=== PATIENT | female | born 1990 | race Caucasian/White ===

== ENCOUNTER 2016-04-24 19:48 | Emergency (ER) | payer OTHER ==
[2016-04-24 19:57] VITALS: BP 132/61; TEMP 98.2; BMI 32.0
[2016-04-24 20:07] LABS: URINE APPEARANCE CLEAR; URINE BILIRUBIN NEGATIVE (NEGATIVE); URINE BLOOD NEGATIVE (NEGATIVE); URINE COLOR LTYELLOW; URINE GLUCOSE (UA) NEGATIVE (NEGATIVE); URINE KETONE NEGATIVE (NEGATIVE); URINE NITRITE NEGATIVE (NEGATIVE); URINE PROTEIN NEGATIVE (NEGATIVE); URINE UROBILINOGEN NEGATIVE E.U./dl (0.2-1.0)
[2016-04-24 20:14] LABS: URINE LEUK ESTERASE 3+ (NEGATIVE)
[2016-04-24 20:15] LABS: URINE BACTERIA RARE /hpf (NONE SEEN); URINE MUCUS RARE; URINE RBC 1 /hpf (0-3); URINE WBC 14 /hpf (3-5)
[2016-04-24 21:04] VITALS: PULSE 131
--- NOTE | 2016-04-24 21:19 | PDOC ---
History of Present Illness - General Chief Complaint: Pain Stated Complaint: BACK PAIN Time Seen by Provider: 04/24/16 21:05 - History of Present Illness Initial Comments: 04/24/16 22:07 CHIEF COMPLAINT: back pain HISTORY OF PRESENT ILLNESS: 25 yo F with significant PMH present to fast track with back pain since this afternoon. Patient states that she "woke up from a nap today and my back hurt." Patient denies any loss of sensation to extremities, any bladder or bowel dysfunction, numbness, or tingling to legs, but does report having a history of "crystals in my urine." Patient denies any fever, chills, nausea, vomiting, diarrhea, or rectal bleeding. No recent travel or sick contacts. PAST MEDICAL HISTORY: "crystals in my urine" FAMILY HISTORY: Denies SOCIAL HISTORY: Lives at home with . Denies tobacco, alcohol, illicit drug use. SURGICAL HISTORY: Denies ALLERGIES: latex, rubber REVIEW OF SYSTEMS General/Constitutional: Denies fever or chills. Denies weakness, weight change. HEENT: Denies change in vision. Denies ear pain or discharge. Denies sore throat. Cardiovascular: Denies chest pain or shortness of breath. Respiratory: Denies cough, wheezing, or hemoptysis. Gastrointestinal: Denies nausea, vomiting, diarrhea or constipation. Denies rectal bleeding. Genitourinary: Denies dysuria, frequency, or change in urination. Musculoskeletal: Back pain. Denies joint or muscle swelling or pain. Denies neck or back pain. Skin and breasts: Denies rash or easy bruising. PHYSICAL EXAM General Appearance: Well-appearing, appropriately dressed. No apparent distress , no intoxication. HEENT: EOMI, PERRLA, normal ENT inspection, normal voice, TMs normal, pharynx normal. No conjunctival pallor. No photophobia, scleral icterus. Neck: No midline tenderness to cervical spine. Supple. Trachea midline. No tenderness, rigidity, carotid bruit, stridor, lymphadenopathy, or thyromegaly. Respiratory/Chest: Lungs CTAB. Cardiovascular: RRR. S1, S2. Gastrointestinal/Abdominal: Normal bowel sounds. Abdomen soft, non-distended. No tenderness or rebound tenderness. No organomegaly, pulsatile mass, guarding , hernia, hepatomegaly, splenomegaly. Musculoskeletal/Extremities: No midline tenderness to thoracic or lumbar spine. Mild tenderness over R latissimus dorsi on deep palpation vs mild R CVA tenderness. Normal inspection. FROM of all extremities, normal capillary refill. Pelvis Stable. No tenderness to extremities, pedal edema, swelling, erythema or deformity. Integumentary: Appropriate color, dry, warm. No cyanosis, erythema, jaundice or rash Neurologic: event marketing intern II-XII intact. Fully oriented, alert. Appropriate mood/affect. Motor strength 5/5. No appreciable EOM palsy, facial droop or sensory deficit. Past History - Past Medical History Allergies/Adverse Reactions: Allergies Allergy/AdvReac Type Severity Reaction Status Date / Time Latex, Natural Rubber Allergy Severe Rash Verified 04/24/16 19:53 Home Medications: Ambulatory Orders Cephalexin Monohydrate [Keflex -] 250 mg PO BID #14 capsule 04/24/16 Asthma: Yes Cancer: No Cardiac Disorders: No Diabetes: No HTN: No Suicide Attempt (Hx): No Seizures: No Thyroid Disease: No - Immunization History Td Vaccination: Yes Immunization Up to Date: Yes - Psycho/Social/Smoking Cessation Hx Anxiety: No Suicidal Ideation: No Smoking Status: No Smoking History: Never smoked Years of Tobacco Use: 0 Have you smoked in the past 12 months: No Number of Cigarettes Smoked Daily: 0 Cigars Per Day: 0 Hx Alcohol Use: No Drug/Substance Use Hx: No Substance Use Type: None Hx Substance Use Treatment: No *Physical Exam - Vital Signs Last Vital Signs Temp Pulse Resp BP Pulse Ox 98.2 F 131 H 18 132/61 96 04/24/16 19:54 04/24/16 21:03 04/24/16 19:54 04/24/16 19:54 04/24/16 21:03 ED Treatment Course - ADDITIONAL ORDERS Additional order review: Laboratory Results 04/24/16 20:00 Urine Color Ltyellow Urine Appearance Clear Urine pH 5.0 Ur Specific Kellogg 1.026 Urine Protein Negative Urine Glucose (UA) Negative Urine Ketones Negative Urine Blood Negative Urine Nitrite Negative Urine Bilirubin Negative Urine Urobilinogen Negative Ur Leukocyte Esterase 3+ H Urine RBC 1 Urine WBC 14 Ur Epithelial Cells Rare Urine Bacteria Rare Urine Mucus Rare Urine HCG, Qual Positive Medical Decision Making - Medical Decision Making 04/24/16 22:11 25 yo F with no significant PMH presents to fast track with back pain. -UA, UCx, Upreg UA positive for 14 WBC, will treat with Keflex as patient's urine test came back positive. Informed patient that she is ; patient and appear happy with the news. Discussed with patient that she should follow up with OBGYN. Advised patient to take medication as prescribed for UTI. Advised patient of signs and symptoms for return to ER. Patient verbalized understanding and agrees to plan. *DC/Admit/Observation/Transfer Diagnosis at time of Disposition: Urinary tract infection Qualifiers: Urinary tract infection type: site unspecified Hematuria presence: without hematuria Qualified Code(s): N39.0 - Urinary tract infection, site not specified - Discharge Dispostion Disposition: HOME Condition at time of disposition: Improved Admit: No - Prescriptions Prescriptions: Cephalexin Monohydrate [Keflex -] 250 mg PO BID #14 capsule - Referrals Referrals: Mei Tyler [Primary Care Provider] - Faisal Olvera MD [Staff Physician] - - Patient Instructions Printed Discharge Instructions: Urinary Tract Infection, Common Discomforts and Bodily Changes During Additional Instructions: Please take medication as prescribed and follow up with the netsuite consultant ( referral provided). If you experience chest pain, headache, shortness of breath , "tearing" pain that travels from the front to the back, fever, chills, nausea , vomiting, diarrhea, severe vaginal bleeding, or any new or worsening symptoms , please return to the ED immediately.
== END 2016-04-24 21:29 | disposition home or self-care (01) ==
LOC: JERFT 19:48
DX: N39.0 Urinary tract infection, site not specified (principal); Z33.1 Pregnant state, incidental; J45.909 Unspecified asthma, uncomplicated
CPT/HCPCS: 81003; 81015; 84703; 87086; 99281-25

== ENCOUNTER 2016-09-09 11:32 | Emergency (ER) | payer OTHER ==
[2016-09-09 11:46] VITALS: BP 135/75; PULSE 105; TEMP 98.9; BMI 38.4
--- NOTE | 2016-09-09 12:14 | PDOC ---
History of Present Illness - General Chief Complaint: Ear Problem Stated Complaint: PAIN/ EYES, EARS, THROAT Time Seen by Provider: 09/09/16 12:00 History Source: Patient Exam Limitations: No Limitations - History of Present Illness Initial Comments: 09/09/16 12:13 23 weeks with complaints of left ear pain and congestions. His asthmatic, used an albuterol nebulizer at home with minimal resolved. States has congestion in both of her ears, some mild forehead pain. Also woke up this morning with yellow crusted drainage to left eye this morning. States felt feverish 2 days ago but has not taken temperature. Suffers from seasonal ALLERGIES but has taken no medications due to . [place] and albuterol inhalers per schedule has been normal without complication or incident 09/09/16 12:45 Timing/Duration: 1 week Severity: mild Associated Symptoms: reports: cough, fever/chills, malaise Past History - Travel Traveled outside of the country in the last 30 days: No Close contact w/someone who was outside of country & ill: No - Past Medical History Allergies/Adverse Reactions: Allergies Allergy/AdvReac Type Severity Reaction Status Date / Time Latex, Natural Rubber Allergy Severe Rash Verified 09/09/16 11:46 Home Medications: Ambulatory Orders Albuterol 0.083% Nebulizer Debby [Ventolin 0.083% Nebulizer Soln -] 1 neb NEB Q4H PRN #30 vial 09/09/16 Sodium Chloride Inhalation [Normal Saline For Inhalation -] 3 ml IH Q6H #30 vial.neb 09/09/16 Asthma: Yes Cancer: No Cardiac Disorders: No Diabetes: No HTN: No Suicide Attempt (Hx): No Seizures: No Thyroid Disease: No - Immunization History Td Vaccination: Yes Immunization Up to Date: Yes - Psycho/Social/Smoking Cessation Hx Anxiety: No Suicidal Ideation: No Smoking Status: No Smoking History: Never smoked Years of Tobacco Use: 0 Have you smoked in the past 12 months: No Number of Cigarettes Smoked Daily: 0 Cigars Per Day: 0 Information on smoking cessation initiated: No Hx Alcohol Use: No Drug/Substance Use Hx: No Substance Use Type: None Hx Substance Use Treatment: No Review of Systems - Review of Systems Able to Perform ROS?: Yes Is the patient limited [place]er proficient: Yes Constitutional: Yes: See HPI, Malaise HEENTM: Yes: Symptoms Reported, Tearing (yellow crusting ), Nose Congestion Respiratory: Yes: Symptoms reported, See HPI, Cough, Wheezing Musculoskeletal: Yes: Symptoms Reported Integumentary: Yes: Symptoms Reported Neurological: No: Symptoms reported All Other Systems: Reviewed and Negative *Physical Exam - Vital Signs Last Vital Signs Temp Pulse Resp BP Pulse Ox 98.9 F 105 H 18 135/75 100 09/09/16 11:44 09/09/16 11:44 09/09/16 11:44 09/09/16 11:44 09/09/16 11:44 - Physical Exam General Appearance: Yes: Nourished, Appropriately Dressed, Apparent Distress HEENT: positive: DOC, Normal ENT Inspection, TMs Normal, Pharynx Normal Neck: positive: Tender, Supple. negative: Lymphadenopathy (R), Lymphadenopathy (L) Respiratory/Chest: positive: Lungs Clear, Decreased Breath Sounds, Wheezing. negative: Normal Breath Sounds Gastrointestinal/Abdominal: positive: Soft. negative: Tender Musculoskeletal: positive: Normal Inspection Extremity: positive: Normal Capillary Refill Integumentary: positive: Normal Color, Dry, Warm Neurologic: positive: oim architect II-XII NML intact, Fully Oriented, Alert, Normal Mood/ Affect, Normal Response, Motor Strength 5/5 Medical Decision Making - Medical Decision Making 09/09/16 12:49 Much improved after 1 DuoNeb, we will prescribe more albuterol nebulizers and encouraged to use the saline to help break up mucus. Encouraged Benadryl use for antihistamine during ALLERGY season. And tobramycin for left eye conjunctivitis *DC/Admit/Observation/Transfer Diagnosis at time of Disposition: Asthma Qualifiers: Asthma severity: mild intermittent Asthma complication type: with acute exacerbation Qualified Code(s): J45.21 - Mild intermittent asthma with (acute) exacerbation Conjunctivitis Qualifiers: Conjunctivitis type: acute Acute conjunctivitis type: bacterial Laterality: left Qualified Code(s): H10.32 - Unspecified acute conjunctivitis, left eye - Discharge Dispostion Disposition: HOME Condition at time of disposition: Stable Admit: No - Prescriptions Prescriptions: Sodium Chloride Inhalation [Normal Saline For Inhalation -] 3 ml IH Q6H #30 vial.neb Albuterol 0.083% Nebulizer Debby [Ventolin 0.083% Nebulizer Soln -] 1 neb NEB Q4H PRN #30 vial PRN Reason: Cough - Patient Instructions Printed Discharge Instructions: DI for Allergic Rhinitis Additional Instructions: Rest, drink lots of fluids: Teas, water, soups Saltwater gargles. Consider humidifier in room at night Steamy showers/seem to face break up mucus Avoid contact with allergens, exposure to pollens, close windows on a windy day Lots of handwashing and good hygiene Continue [id number] medications for symptomatic relief- may use allergic eyedrops for itching I Continue antihistamines daily until pollen season is over; Benadryl at nighttime as will make sleepy Tylenol n for fever and pain Continue albuterol nebulizers and dilute with saline to help break up mucus assist with cough Tobramycin drops, 2 drops to left eye 4 times a day for 5 days Ensure washing hands before and after instillation as this is very contagious and avoid contact with others until resolved Followup with private physician in one to 2 days as needed Return to emergency department for worsened symptoms, fevers, dehydration - Post Discharge Activity Work/School Note: Back to Work
[2016-09-09] MEDS ORDERED: ALBUTEROL SO4 2.5/IPRATROPIUM 0.5 INH SOL 3 ML VIAL.NEB. NEB ONE ×2 (12:29→12:36)
[2016-09-09] MEDS ORDERED: TOBRAMYCIN 0.3% OPHTH SOLN 5 ML BOTTLE OD ONE (12:29)
[2016-09-09] MEDS ORDERED: TOBRAMYCIN 0.3% OPHTH SOLN 5 ML BOTTLE ONE (12:36)
== END 2016-09-09 13:56 | disposition home or self-care (01) ==
LOC: JERFT 11:32
PROC: 3E0F7GC Introduction of Other Therapeutic Substance into Respiratory Tract, Via Natural or Artificial Opening (ICD-10-PCS; principal; 2016-09-09)
DX: J45.21 Mild intermittent asthma with (acute) exacerbation (principal); H10.32 Unspecified acute conjunctivitis, left eye; J30.2 Other seasonal allergic rhinitis
CPT/HCPCS: 94640; 99281-25

== ENCOUNTER 2018-02-10 03:19 | Emergency (ER) | payer OTHER ==
--- NOTE | 2018-02-10 03:53 | PDOC ---
History of Present Illness - General Chief Complaint: Headache Stated Complaint: 12 WEEKS /MIGRANE Time Seen by Provider: 02/10/18 03:52 History Source: Patient - History of Present Illness Initial Comments: 02/10/18 06:19 27 year old 12 weeks female with nausea, vomiting and headache x 3 days. patient reports that he has photophobia with the headache. unable tot take tylenol due to the nausea. denies vaginal bleeding, abdominal pain, fever/ chills, neck pain Pmhx: migraines Past History - Past Medical History Allergies/Adverse Reactions: Allergies Allergy/AdvReac Type Severity Reaction Status Date / Time Latex, Natural Rubber Allergy Severe Rash Verified 09/09/16 11:46 Home Medications: Ambulatory Orders Albuterol 0.083% Nebulizer Debby [Ventolin 0.083% Nebulizer Soln -] 1 neb NEB Q4H PRN #30 vial 09/09/16 Sodium Chloride Inhalation [Normal Saline For Inhalation -] 3 ml IH Q6H #30 vial.neb 09/09/16 Doxylamine Succinate/Vit B6 [[place] 10-10 mg Tablet] 1 each PO HS #14 tablet. 02/10/18 Asthma: Yes Cancer: No Cardiac Disorders: No Diabetes: No HTN: No Seizures: No Thyroid Disease: No - Immunization History Td Vaccination: Yes Immunization Up to Date: Yes - Suicide/Smoking/Psychosocial Hx Smoking Status: No Smoking History: Never smoked Years of Tobacco Use: 0 Have you smoked in the past 12 months: No Number of Cigarettes Smoked Daily: 0 Cigars Per Day: 0 Hx Alcohol Use: No Drug/Substance Use Hx: No Substance Use Type: None Hx Substance Use Treatment: No *Physical Exam - Vital Signs 02/10/18 06:20 Last Vital Signs Temp Pulse Resp BP Pulse Ox 98.5 F 106 H 19 124/83 99 02/10/18 03:49 02/10/18 03:49 02/10/18 03:49 02/10/18 03:49 02/10/18 03:49 - Physical Exam General Appearance: Yes: Appropriately Dressed Respiratory/Chest: positive: Lungs Clear, Normal Breath Sounds Cardiovascular: positive: Regular Rhythm, Regular Rate Gastrointestinal/Abdominal: positive: Normal Bowel Sounds Neurologic: positive: travel services professional II-XII NML intact, Fully Oriented, Alert, Normal Mood/ Affect, Motor Strength 5/5, Other (+ sensitivity to light) ED Treatment Course - LABORATORY CBC & Chemistry Diagram: 02/10/18 04:37 02/10/18 04:37 Medical Decision Making - Medical Decision Making 02/10/18 06:32 patient reports feeling better. no photophobia/ feve *DC/Admit/Observation/Transfer Diagnosis at time of Disposition: Hyperemesis gravidarum Migraine Qualifiers: Migraine type: without aura Status migrainosus presence: without status migrainosus Intractability: not intractable Qualified Code(s): G43.009 - Migraine without aura, not intractable, without status migrainosus - Discharge Dispostion Disposition: HOME - Prescriptions Prescriptions: Doxylamine Succinate/Vit B6 [[place] 10-10 mg Tablet] 1 each PO HS #14 tablet. - Referrals Referrals: Mei Tyler [Primary Care Provider] - - Patient Instructions Printed Discharge Instructions: Celena May Improve Nausea Symptoms in Additional Instructions: drink plenty of fluids follow up with your doctor as soon as possible. return to the ER if symptoms worsen - Post Discharge Activity Forms/Work/School Notes: Back to Work
[2018-02-10] MEDS ORDERED: SODIUM CHLORIDE 1,000 ML IV STA (03:58)
[2018-02-10] MEDS ORDERED: METOCLOPRAMIDE HCL INJECTION 10 MG/2 ML VIAL IVPB ONE (03:59)
[2018-02-10 04:06] VITALS: BP 124/83; PULSE 106; TEMP 98.5; BMI 39.1
[2018-02-10] MEDS ORDERED: METOCLOPRAMIDE HCL INJECTION 10 MG/2 ML VIAL ONE (04:11)
[2018-02-10 04:43] LABS: BASO % 0.2 % (0-2.0); EOS % 0.1 % (0-4.5); HEMATOCRIT 36.6 % (32.4-45.2); HEMOGLOBIN 12.6 GM/dL (10.7-15.3); LYMPH % 18.8 % (8-40); MCH 29.9 pg (25.7-33.7); MCHC 34.4 g/dl (32.0-36.0); MEAN PLT VOLUME 9.8 fl (7.5-11.1); MONO % 4.3 % (3.8-10.2); NEUT % 76.6 % (42.8-82.8); PLATELET COUNT 181 K/MM3 (134-434); RBC 4.21 M/mm3 (3.60-5.2); RDW 13.8 % (11.6-15.6); WHITE BLOOD COUNT 7.3 K/mm3 (4.0-10.0)
[2018-02-10 04:53] LABS: URINE APPEARANCE SLCLOUDY; URINE BILIRUBIN NEGATIVE (<2.0 mg/dL); URINE COLOR YELLOW; URINE GLUCOSE (UA) NEGATIVE (NEGATIVE); URINE KETONE NEGATIVE (NEGATIVE); URINE LEUK ESTERASE NEGATIVE (NEGATIVE); URINE NITRITE NEGATIVE (NEGATIVE); URINE PROTEIN 1+ (NEGATIVE); URINE UROBILINOGEN NEGATIVE mg/dL (0.2-1.0)
[2018-02-10 05:10] LABS: EPI CELLS FEW /HPF (FEW); URINE MUCUS MODERATE
[2018-02-10 05:43] LABS: ALBUMIN 3.4 g/dl (3.4-5.0); ALK PHOS 72 U/L (45-117); ANION GAP 10 MMOL/L (8-16); BILIRUBIN,TOTAL 0.5 mg/dL (0.2-1); BLOOD UREA NITROGEN 6 mg/dL (7-18); CALCIUM 8.7 mg/dL (8.5-10.1); CHLORIDE 107 mmol/L (98-107); CO2 24 mmol/L (21-32); CREATININE 0.4 mg/dL (0.55-1.3); GLUCOSE,RANDOM 108 mg/dL (74-106); POTASSIUM 3.8 mmol/L (3.5-5.1); SGOT/AST 7 U/L (15-37); SGPT/ALT 12 U/L (13-61); SODIUM 141 mmol/L (136-145); TOT PROT 6.4 g/dl (6.4-8.2)
== END 2018-02-10 07:00 | disposition home or self-care (01) ==
LOC: JER 03:19
PROC: 3E033GC Introduction of Other Therapeutic Substance into Peripheral Vein, Percutaneous Approach (ICD-10-PCS; principal; 2018-02-10)
PROC: 3E0337Z Introduction of Electrolytic and Water Balance Substance into Peripheral Vein, Percutaneous Approach (ICD-10-PCS; 2018-02-10)
DX: O26.891 Other specified pregnancy related conditions, first trimester (principal); Z3A.12 12 weeks gestation of pregnancy; O21.0 Mild hyperemesis gravidarum
CPT/HCPCS: 36415; 80053; 81003; 81015; 84702; 85025; 87086; 96361; 96374; 99282-25; J7030

== ENCOUNTER 2018-10-02 20:24 | Emergency (ER) | payer OTHER ==
[2018-10-02 20:32] VITALS: BP 123/73; PULSE 77; TEMP 98.4; BMI 35.6
--- NOTE | 2018-10-02 21:15 | PDOC ---
History of Present Illness - General Chief Complaint: Wound Stated Complaint: R. LEG BIRTHMARK BLEED WITH PAIN. Time Seen by Provider: 10/02/18 20:36 History Source: Patient Exam Limitations: No Limitations - History of Present Illness Initial Comments: 10/02/18 21:44 atient states his had a lesion on the bottom of her ight medial instep/ foot for many years, greater than 20 and has intermittent swelling and bleeding from same site. States saw senior embedded software engineer some years ago and had a biopsy aken but did not follow-up on the results. States yesterday became swollen again and noted this morning had small amount appear to light or bleeding type drainage from the same area. Denies redness, denies pain, denies any recent trauma. Is uncertain as to cause of the lesion and has not grown any biggerin all of the years Has no history of skin cancers. 10/02/18 21:47 Timing/Duration: reports: constant Severity: Yes: mild Location: reports: extremities Respiratory Risk Factors: reports: no cause identified Associated Symptoms: reports: denies symptoms Past History - Travel Traveled outside of the country in the last 30 days: No Close contact w/someone who was outside of country & ill: No - Past Medical History Allergies/Adverse Reactions: Allergies Allergy/AdvReac Type Severity Reaction Status Date / Time Latex, Natural Rubber Allergy Severe Rash Verified 10/02/18 21:01 Home Medications: Ambulatory Orders NK [No Known Home Medication] 10/02/18 Asthma: Yes Cancer: No Cardiac Disorders: Yes (arrhythmia) COPD: No CHF: No Diabetes: No HTN: Yes Seizures: No Thyroid Disease: No - Surgical History Cholecystectomy: No Gastric Stapling: No GI Surgery: No Lung Surgery: No - Immunization History Td Vaccination: Yes Immunization Up to Date: Yes - Suicide/Smoking/Psychosocial Hx Smoking Status: No Smoking History: Never smoked Years of Tobacco Use: 0 Have you smoked in the past 12 months: No Number of Cigarettes Smoked Daily: 0 Cigars Per Day: 0 Hx Alcohol Use: No Drug/Substance Use Hx: No Substance Use Type: None Hx Substance Use Treatment: No Review of Systems - Review of Systems Able to Perform ROS?: Yes Is the patient limited French proficient: Yes Constitutional: Yes: Symptoms Reported, See HPI. No: Fever, Malaise HEENTM: No: Symptoms Reported Integumentary: Yes: Symptoms Reported, See HPI, Lesions. No: Bruising Neurological: No: Symptoms reported All Other Systems: Reviewed and Negative *Physical Exam - Vital Signs Last Vital Signs Temp Pulse Resp BP Pulse Ox 98.4 F 77 20 123/73 98 10/02/18 20:29 10/02/18 20:29 10/02/18 20:29 10/02/18 20:29 10/02/18 20:29 - Physical Exam General Appearance: Yes: Nourished, Appropriately Dressed. No: Apparent Distress HEENT: positive: DOC, Normal ENT Inspection, TMs Normal, Pharynx Normal Neck: positive: Supple Musculoskeletal: positive: Normal Inspection. negative: Decreased Range of Motion, Vertebral Tenderness Extremity: positive: Normal Capillary Refill, Normal Inspection, Normal Range of Motion. negative: Tender Integumentary: positive: Dry, Other ( cm x 3 mm lesion to the medial aspect of right midfoot. ppears to be mildly vascular, keratinized. Has some faint swellingcircumferentially however is nontender non-erythematous, and does not appear to be cellulitic.) Neurologic: positive: senior health consultant II-XII NML intact, Fully Oriented, Alert, Normal Mood/ Affect, Normal Response, Motor Strength 5/5 Progress Note - Progress Note Progress Note: esion to right instep. Patient encouraged to soak and to keep moist to allow for any drainage if indicated. Also highly encouraged to follow-up with podiatry this week for recurrent biopsy to ensure not neoplastic and for other definitive treatment.Will withhold antibioticsas does not appear infected and patient is currently breast-feeding *DC/Admit/Observation/Transfer Diagnosis at time of Disposition: Granuloma of skin - Discharge Dispostion Disposition: HOME Condition at time of disposition: Stable Decision to Admit order: No - Referrals Referrals: Mei Tyler [Primary Care Provider] - Donald Joseph MD [Staff Physician] - - Patient Instructions Printed Discharge Instructions: DI for Skin Lesion Removal Additional Instructions: rest, elevate foot, avoid tight fitting footwear or high-heeled shoes until evaluated Keep area moist, apply bacitracin ointment and Band-Aid Soak foot 3-4 times a day in is warm and water as possible to encourage drainage Call make appointment for senior embedded software engineer for further evaluation and possible biopsy Return to emergency department for worsened swelling, fevers, purulent drainage from wound. - Post Discharge Activity
== END 2018-10-02 21:43 | disposition home or self-care (01) ==
LOC: JERFT 20:24
DX: L92.9 Granulomatous disorder of the skin and subcutaneous tissue, unspecified (principal); I10 Essential (primary) hypertension
CPT/HCPCS: 99281-25

== ENCOUNTER 2023-04-14 02:15 | Emergency (ER) | payer OTHER ==
[2023-04-14 02:24] VITALS: BP 139/85; PULSE 100; RESP 18; TEMP 98.7; BMI 40.4
== END 2023-04-14 08:07 | disposition admitted as inpatient to this hospital (09) ==
LOC: JER 02:15
DX: T17.208A Unspecified foreign body in pharynx causing other injury, initial encounter (principal)
CPT/HCPCS: 70490-TC; 71250-TC; 84703; 99284-25